=== PATIENT | male | born 1970 | race Caucasian/White ===

== ENCOUNTER → 2017-02-18 | Outpatient (REF) | payer OTHER ==
[~2017-02-18] MED LIST: DYMI137S; SIMP50IN2 SC; SIMV40TA2 PO
[2017-02-18 19:52] LABS: PERCENT SATURATION 61.9 % (19.7-50.0)
== END ==
LOC: M LAB REF 17:43
PROVIDERS: ATTEND Internal Medicine
DX: E83.110 Hereditary hemochromatosis (principal)

== ENCOUNTER → 2017-09-18 | Outpatient (REF) | payer OTHER ==
[2017-09-18 14:05] LABS: FERRITIN 578 NG/ML (26-388); IRON (FE) 126 UG/DL (65-175); PERCENT SATURATION 37.4 % (19.7-50.0); TOTAL IRON BINDING CAPACITY 337 UG/DL (250-450)
== END ==
LOC: M LAB REF 13:37
DX: E83.110 Hereditary hemochromatosis (principal)

== ENCOUNTER → 2018-09-21 | Outpatient (REF) | payer OTHER ==
[2018-09-21 14:31] LABS: PERCENT SATURATION 32.2 % (19.7-50.0)
== END ==
LOC: M LAB REF 12:46
PROVIDERS: ATTEND Internal Medicine
DX: E83.110 Hereditary hemochromatosis (principal)

== ENCOUNTER → 2019-09-03 | Outpatient (CLI) | payer BC ==
[~2019-09-03] MED LIST changes: -SIMV40TA2 PO; +SIMV40TA20 PO
--- NOTE | 2019-09-03 12:13 | REP ---
PA and lateral chest: Comparison is 06/22/2008. The lung [place] are clear. The cardiac size is normal. The reji, mediastinum, and skeletal structures are unremarkable. Impression: Negative PA and lateral chest. There is no interval change. Electronically Signed by Jose Forrester MD 09/03/2019 12:06 P
== END ==
LOC: M WUC 11:43
PROVIDERS: ATTEND Physician Assistant
DX: J20.9 Acute bronchitis, unspecified (principal)

== ENCOUNTER → 2019-10-03 | Outpatient (REF) | payer BC ==
[2019-10-03 13:04] LABS: C REACTIVE PROTEIN QUANTITATIV 1.32 MG/DL (0.00-0.30); PERCENT SATURATION 43.9 % (19.7-50.0)
== END ==
LOC: M LAB REF 12:03
PROVIDERS: ATTEND Internal Medicine
DX: E83.110 Hereditary hemochromatosis (principal); L40.9 Psoriasis, unspecified

== ENCOUNTER → 2019-10-24 | Outpatient (CLI) | payer BC ==
[~2019-10-24] MED LIST changes: +METHACHOLINE KIT (J7674) INH ONE
--- NOTE | 2019-10-24 10:03 | PFTRPT ---
Site: [facility], [address] [place], [address] ID: [id number] Name: IGOR STANLEY Visit Date: 10/24/2019 Second ID: [id number] Referring Doctor: Cami Scott DO Reviewing Doctor: Brett Brambila MD Mill Order Scheduler: Keri Garza Age: 49 : 1970 Sex: Male Race: Height: 69.00 Inches Weight: 215.00 Lbs BSA: 2.13 Order IDs: [id number] Requested Test(s): <RESP-PFT.BROCHOPROV> Diagnosis: R05 puffs of albuterol for post bronchodilator. Review Status: Not Reviewed Pre-Bronch Post-Bronch Pred Actual %Pred Actual %Chng SPIROMETRY FVC (L) 4.94 4.64 93 4.49 -3 FEV1 (L) 3.85 3.82 99 3.65 -4 FEV1/FVC (%) 78 82 105 81 -1 FEF 25% (L/sec) 8.02 8.99 112 8.40 -6 FEF 50% (L/sec) 5.24 5.15 98 4.89 -5 FEF 75% (L/sec) 1.76 1.54 87 1.09 -29 FEF 25-75% (L/sec) 3.47 4.03 116 3.48 -13 FEF Max (L/sec) 9.68 10.38 107 9.06 -12 FIVC (L) 3.96 4.07 2 FIF 50% (L/sec) 5.03 7.59 150 7.20 -5 FIF Max (L/sec) 7.61 7.22 -5 Expiratory Time (sec) 7.14 7.49 4 Back Extrap Vol (L) 0.13 0.17 26 Time To FEFmax (sec) 0.072 0.097 35
== END ==
LOC: M CARPUL 09:07
PROVIDERS: ATTEND Internal Medicine
DX: R05 Cough (principal)
CPT/HCPCS: 94070; J7674

== ENCOUNTER → 2020-10-03 | Outpatient (REF) | payer BC ==
[~2020-10-03] MED LIST changes: -METHACHOLINE KIT (J7674) INH ONE
[2020-10-03 13:32] LABS: C REACTIVE PROTEIN QUANTITATIV 0.38 MG/DL (0.00-0.30); PERCENT SATURATION 46.9 % (19.7-50.0)
== END ==
LOC: M LAB REF 12:13
PROVIDERS: ATTEND Internal Medicine
DX: L40.9 Psoriasis, unspecified (principal); E83.110 Hereditary hemochromatosis

== ENCOUNTER → 2020-11-24 | Outpatient (REF) | payer BC | LOC: M WUC 17:23 | PROVIDERS: ATTEND Nurse Practitioner Family | DX: J04.0 Acute laryngitis (principal) ==

== ENCOUNTER → 2021-10-08 | Outpatient (REF) | payer BC | LOC: M LAB REF 16:48 | PROVIDERS: ATTEND Internal Medicine | DX: E78.00 Pure hypercholesterolemia, unspecified (principal) ==

== ENCOUNTER → 2021-10-08 | Outpatient (REF) | payer BC ==
[2021-10-08 13:16] LABS: PERCENT SATURATION 35.2 % (19.7-50.0)
== END ==
LOC: M LAB REF 12:19
PROVIDERS: ATTEND Internal Medicine
DX: E83.110 Hereditary hemochromatosis (principal)

== ENCOUNTER → 2022-10-10 | Outpatient (REF) | payer BC ==
[2022-10-10 12:26] LABS: PERCENT SATURATION 64.5 % (19.7-50.0)
[2022-10-10 12:28] LABS: FERRITIN 703.1 NG/ML (10.5-307.3)
== END ==
LOC: M LAB REF 11:21
PROVIDERS: ATTEND Internal Medicine
DX: E83.110 Hereditary hemochromatosis (principal)

== ENCOUNTER 2022-11-04 20:41 | Emergency (ER) | payer BC ==
[~2022-11-04] VITALS: Ht 175.3 cm; Wt 98.4 kg
[2022-11-04] MEDS ORDERED: KETOROLAC 30 MG/ML 1ML VIAL IV ONE (21:35)
[2022-11-04] MEDS ORDERED: NS 1,000 ML IV ONE (21:35)
[2022-11-04 21:55] LABS: BASO # 0.1 10^3/uL (0.0-0.2); BASO % 0.5 % (0.0-1.0); EOS % 0.2 % (0.0-3.0); HEMATOCRIT 43.8 % (42.0-52.0); HEMOGLOBIN 15.5 g/dl (13.5-17.5); LYMPH # 3.4 10^3/uL (1.5-5.0); LYMPH % 25.7 % (24.0-44.0); MEAN CORPUSCULAR HEMOGLOBIN 32.4 pg (27.0-33.0); MEAN CORPUSCULAR HGB CONC 35.4 g/dl (32.0-36.5); MEAN CORPUSCULAR VOLUME 91.6 fl (80.0-96.0); MONO # 1.3 10^3/uL (0.0-0.8); MONO % 9.7 % (2.0-8.0); NEUTROPHILS # 8.4 10^3/uL (1.5-8.5); NEUTROPHILS % 63.4 % (36.0-66.0); PLATELET COUNT, AUTOMATED 189 10^3/uL (150-450); RED BLOOD COUNT 4.78 10^6/uL (4.30-6.10); WHITE BLOOD COUNT 13.3 10^3/uL (4.0-10.0)
[2022-11-04 22:14] LABS: LIPASE 37 U/L (12-53)
[2022-11-04 22:16] LABS: ALKALINE PHOSPHATASE 63 U/L (46-116); ALT/SGPT 73 U/L (7.0-40); AST/SGOT 33 U/L (<34); BILIRUBIN,TOTAL 0.6 MG/DL (0.3-1.2); BLOOD UREA NITROGEN 20 MG/DL (9-23); CALCIUM LEVEL 9.4 MG/DL (8.5-10.1); CARBON DIOXIDE LEVEL 29 MMOL/L (20-31); CHLORIDE LEVEL 102 MMOL/L (98-107); CK-MB VALUE MASS 1.9 NG/ML (<3.6); CREATININE FOR GFR 0.93 MG/DL (0.70-1.30); GLOMERULAR FILTRATION RATE > 60.0 (>56); GLUCOSE, FASTING 120 MG/DL (60-100); POTASSIUM SERUM 4.2 MMOL/L (3.5-5.1); SODIUM LEVEL 138 MMOL/L (136-145)
[2022-11-04 22:20] LABS: CPK CREATINE PHOSPHOKINASE 219 U/L (46-171); MB/CK RELATIVE INDEX 0.86 (< OR =4)
[2022-11-04 22:30] VITALS: BP 147/96
[2022-11-04] MEDS ORDERED: ISOVUE-370 76% 100ML VIAL As Ordered ONE (22:31)
[2022-11-04] MEDS ORDERED: CHLORTHALIDONE 12.5MG PER 1/2 TABLET PO ONE (22:40)
[2022-11-05] MEDS ORDERED: READI-CAT 2 PO ONE (00:35)
[2022-11-05] MEDS ORDERED: traMADol 50 MG TAB (HOME DOSE PACK) PO ONE (02:05)
== END 2022-11-05 02:17 | disposition left against medical advice (07) ==
LOC: M ED 20:41
DX: R10.9 Unspecified abdominal pain (principal); K21.9 Gastro-esophageal reflux disease without esophagitis; E78.5 Hyperlipidemia, unspecified; L40.52 Psoriatic arthritis mutilans; Z87.891 Personal history of nicotine dependence; Z88.8 Allergy status to other drugs, medicaments and biological substances; Z79.899 Other long term (current) drug therapy
CPT/HCPCS: 71250; 74177; 80053; 82550; 82553; 83605; 83690; 84484; 85025; 96374; 99284; J1885; Q9967

== ENCOUNTER 2022-11-05 12:44 | Emergency (ER) | payer BC ==
[~2022-11-05] VITALS: Ht 175.3 cm; Wt 96.4 kg
[2022-11-05 12:45] VITALS: BP 154/98
== END 2022-11-05 13:01 | disposition left against medical advice (07) ==
LOC: M ED 12:44
DX: Z53.21 Procedure and treatment not carried out due to patient leaving prior to being seen by health care provider (principal)

== ENCOUNTER 2023-03-09 11:46 | Day surgery (SDC) | payer BC ==
[~2023-03-09] VITALS: Ht 175.3 cm; Wt 96.6 kg
[~2023-03-09 11:46] MED LIST changes: +CALC0.004 TOP; +HALO0.052 TOP; +NS 1,000 ML IV ONE; +OMEP40CA5 PO
[2023-03-09] MEDS ORDERED: propofoL 200 MG/20 ML VIAL As Ordered ONE (14:22)
[2023-03-09] MEDS ORDERED: fentaNYL 100 MCG/2 ML INJECTION As Ordered ONE (14:22)
[2023-03-09] MEDS ORDERED: LIDOCAINE 2% 100MG/5ML SDV (FOR ANES.) As Ordered ONE (14:26)
[2023-03-09 14:59] VITALS: BP 160/98; O2SAT 96
== END 2023-03-09 15:01 | disposition home or self-care (01) ==
LOC: M OPP 11:46
PROVIDERS: ATTEND Internal Medicine Gastroenterology
DX: K22.89 Other specified disease of esophagus (principal); K44.9 Diaphragmatic hernia without obstruction or gangrene; Z79.02 Long term (current) use of antithrombotics/antiplatelets; Z79.52 Long term (current) use of systemic steroids; Z79.899 Other long term (current) drug therapy; Z88.8 Allergy status to other drugs, medicaments and biological substances
CPT/HCPCS: 43239; 88305; J3010

== ENCOUNTER → 2023-10-16 | Outpatient (REF) | payer BC ==
[~2023-10-16] MED LIST changes: -NS 1,000 ML IV ONE
== END ==
LOC: M LAB REF 11:47
PROVIDERS: ATTEND Internal Medicine
DX: E83.110 Hereditary hemochromatosis (principal)

== ENCOUNTER → 2024-05-13 | Outpatient (CLI) | payer BC ==
[~2024-05-13] MED LIST changes: -HALO0.052 TOP; +HALO0.056 TOP
== END ==
LOC: M SLEEP HO 10:56
PROVIDERS: ATTEND Nurse Practitioner Adult Health
DX: G47.33 Obstructive sleep apnea (adult) (pediatric) (principal)

== ENCOUNTER → 2024-06-25 | Outpatient (CLI) | payer BC | LOC: M RAD 08:46 | PROVIDERS: ATTEND Physician Assistant Medical | DX: J20.9 Acute bronchitis, unspecified (principal); J45.901 Unspecified asthma with (acute) exacerbation ==

== ENCOUNTER → 2024-07-10 | Outpatient (CLI) | payer BC, OTHER | LOC: M SLEEP 20:00 | PROVIDERS: ATTEND Nurse Practitioner Adult Health | DX: G47.33 Obstructive sleep apnea (adult) (pediatric) (principal) ==

== ENCOUNTER 2024-07-13 10:07 | Emergency (ER) | payer BC, OTHER ==
[~2024-07-13] VITALS: Ht 175.3 cm; Wt 98.7 kg
[2024-07-13] MEDS ORDERED: METOPROLOL 5 MG/5 ML VIAL IV PRN (10:25)
[2024-07-13] MEDS ORDERED: NITROGLYCERIN 0.4MG SUBL TABLET As Ordered ONE (10:27)
[2024-07-13] MEDS: NITROGLYCERIN 0.4MG SUBL TABLET SL PRN (10:30)
[2024-07-13] MEDS: ASPIRIN 81MG CHEW TABLET PO ONE (10:31)
[2024-07-13] MEDS: MORPHINE 2 MG/ML 1ML VIAL IV PRN (10:32)
[2024-07-13 10:37] VITALS: BP 117/63
[2024-07-13] MEDS: TENECTEPLASE 50 MG/10 ML VIAL IV STA (10:38)
[2024-07-13] MEDS: NS 500 ML IV ONE (10:45)
[2024-07-13 10:47] LABS: BASO # 0.1 10^3/uL (0.0-0.2); BASO % 0.6 % (0.0-1.0); EOS # 0.2 10^3/uL (0.0-0.5); HEMATOCRIT 43.7 % (42.0-52.0); HEMOGLOBIN 15.5 g/dl (13.5-17.5); LYMPH # 2.8 10^3/uL (1.5-5.0); LYMPH % 35.2 % (24.0-44.0); MEAN CORPUSCULAR HEMOGLOBIN 31.8 pg (27.0-33.0); MEAN CORPUSCULAR HGB CONC 35.5 g/dl (32.0-36.5); MEAN CORPUSCULAR VOLUME 89.7 fl (80.0-96.0); MONO # 0.7 10^3/uL (0.0-0.8); NEUTROPHILS # 4.1 10^3/uL (1.5-8.5); NEUTROPHILS % 52.8 % (36.0-66.0); PLATELET COUNT, AUTOMATED 169 10^3/uL (150-450); RED BLOOD COUNT 4.87 10^6/uL (4.30-6.10); WHITE BLOOD COUNT 7.9 10^3/uL (4.0-10.0)
[2024-07-13] MEDS: HEPARIN SOD (PORCINE) 5000UNITS/ML 1ML VIAL/SYRINGE IV ONE (10:48)
[2024-07-13] MEDS: HEPARIN DRIP 25,000 UNITS in IV 1 EA IV SCH (10:49)
[2024-07-13] MEDS: CLOPIDOGREL 300 MG TAB (PLAVIX) PO ONE (10:55)
[2024-07-13 11:00] LABS: PARTIAL THROMBOPLASTIN TIME 24.5 SECONDS (24.8-34.2); PROTHROMBIN TIME 13.5 SECONDS (12.5-14.5)
[2024-07-13 11:10] LABS: BLOOD UREA NITROGEN 20 MG/DL (9-23); CALCIUM LEVEL 9.1 MG/DL (8.5-10.1); CARBON DIOXIDE LEVEL 26 MMOL/L (20-31); CHLORIDE LEVEL 101 MMOL/L (98-107); CK-MB VALUE MASS < 1.0 NG/ML (<3.6); CREATININE FOR GFR 0.87 MG/DL (0.70-1.30); GLOMERULAR FILTRATION RATE > 60.0 (>56); GLUCOSE, FASTING 306 MG/DL (60-100); POTASSIUM SERUM 4.2 MMOL/L (3.5-5.1); SODIUM LEVEL 138 MMOL/L (136-145)
[2024-07-13 11:12] VITALS: BP 136/80; TEMP 97.6; O2SAT 100
[2024-07-13 11:14] LABS: CPK CREATINE PHOSPHOKINASE 174 U/L (46-171); MB/CK RELATIVE INDEX 0.57 (< OR =4)
== END 2024-07-13 11:14 | disposition short-term general hospital (02) ==
LOC: M ED 10:07
DX: I21.4 Non-ST elevation (NSTEMI) myocardial infarction (principal); I10 Essential (primary) hypertension; E78.5 Hyperlipidemia, unspecified; F10.10 Alcohol abuse, uncomplicated; Z79.899 Other long term (current) drug therapy
CPT/HCPCS: 71045; 80047; 80048; 82550; 82553; 84484; 85025; 85610; 85730; 93005; 93041; 94760; 96374; 96375; 96376; 99291; J3101

== ENCOUNTER → 2024-10-18 | Outpatient (REF) | payer BC | LOC: M LAB REF 12:14 | PROVIDERS: ATTEND Internal Medicine | DX: E83.110 Hereditary hemochromatosis (principal) ==

== ENCOUNTER → 2024-10-25 | Outpatient (CLI) | payer BC | LOC: M RAD 07:57 | PROVIDERS: ATTEND Internal Medicine | DX: J18.9 Pneumonia, unspecified organism (principal) ==

== ENCOUNTER 2025-05-10 09:21 | Emergency (ER) | payer BC ==
[~2025-05-10] VITALS: Ht 175.3 cm; Wt 98.1 kg
[~2025-05-10 09:21] MED LIST changes: -ATOR80TA59; -CLOP75TA2; -EZET10TA57; -METO1TAB32; -PANT40TA29; -TAPI60CR
[2025-05-10 09:22] VITALS: TEMP 97.4
[2025-05-10] MEDS ORDERED: CLOP75TA2 (09:34)
[2025-05-10] MEDS ORDERED: PANT40TA29 (09:34)
[2025-05-10] MEDS ORDERED: TAPI60CR (09:34)
[2025-05-10] MEDS ORDERED: METO1TAB32 (09:34)
[2025-05-10] MEDS ORDERED: ATOR80TA59 (09:34)
[2025-05-10] MEDS ORDERED: EZET10TA57 (09:34)
[2025-05-10 09:56] LABS: BASO # 0.1 10^3/uL (0.0-0.2); BASO % 0.6 % (0.0-1.0); EOS # 0.1 10^3/uL (0.0-0.5); EOS % 1.3 % (0.0-3.0); LYMPH # 1.6 10^3/uL (1.5-5.0); LYMPH % 15.3 % (24.0-44.0); MONO # 0.7 10^3/uL (0.0-0.8); MONO % 6.7 % (2.0-8.0); NEUTROPHILS # 7.7 10^3/uL (1.5-8.5); NEUTROPHILS % 75.7 % (36.0-66.0); PLATELET COUNT, AUTOMATED 161 10^3/uL (150-450)
[2025-05-10 10:31] LABS: ALT/SGPT 42 U/L (7.0-40); AST/SGOT 29 U/L (<34); CALCIUM LEVEL 9.6 MG/DL (8.5-10.1); CARBON DIOXIDE LEVEL 25 MMOL/L (20-31); CHLORIDE LEVEL 105 MMOL/L (98-107); CREATININE FOR GFR 0.87 MG/DL (0.70-1.30); GLOMERULAR FILTRATION RATE > 90.0 (>56); POTASSIUM SERUM 4.2 MMOL/L (3.5-5.1); SODIUM LEVEL 142 MMOL/L (136-145)
[2025-05-10] MEDS ORDERED: ISOVUE-370 76% 100 ML VIAL As Ordered ONE (13:54)
[2025-05-10 13:57] LABS: CK-MB VALUE MASS 2.7 NG/ML (<3.6)
[2025-05-10 13:58] LABS: CPK CREATINE PHOSPHOKINASE 224 U/L (46-171); MB/CK RELATIVE INDEX 1.20 (< OR =4)
[2025-05-10 14:36] LABS: CK-MB VALUE MASS 2.2 NG/ML (<3.6)
[2025-05-10 14:39] LABS: CPK CREATINE PHOSPHOKINASE 195.0 U/L (46-171); MB/CK RELATIVE INDEX 1.12 (< OR =4)
[2025-05-10 15:51] VITALS: BP 144/96; O2SAT 95
== END 2025-05-10 16:01 | disposition home or self-care (01) ==
LOC: M ED 09:21
DX: R10.9 Unspecified abdominal pain (principal); K40.90 Unilateral inguinal hernia, without obstruction or gangrene, not specified as recurrent; I25.119 Atherosclerotic heart disease of native coronary artery with unspecified angina pectoris; I25.2 Old myocardial infarction; K21.9 Gastro-esophageal reflux disease without esophagitis; I10 Essential (primary) hypertension; E78.5 Hyperlipidemia, unspecified; F10.10 Alcohol abuse, uncomplicated; Z88.1 Allergy status to other antibiotic agents; Z88.8 Allergy status to other drugs, medicaments and biological substances; Z91.09 Other allergy status, other than to drugs and biological substances; Z79.899 Other long term (current) drug therapy; K59.00 Constipation, unspecified
CPT/HCPCS: 36415; 74021; 74177; 80048; 80076; 82550; 82553; 83690; 84484; 85025; 93005; 99285; Q9967

== ENCOUNTER → 2025-05-10 | Outpatient (CLI) | payer BC ==
[~2025-05-10] MED LIST changes: +ATOR80TA59; +CLOP75TA2; +EZET10TA57; +METO1TAB32; +PANT40TA29; +TAPI60CR
== END ==
LOC: M WUC 08:33
PROVIDERS: ATTEND Nurse Practitioner Family
DX: R10.13 Epigastric pain (principal); K59.00 Constipation, unspecified